=== PATIENT | male | born 1960 | race African-American/Black ===

== ENCOUNTER 2017-12-24 05:57 | Inpatient (IN) | payer OTHER ==
[2017-12-02 11:34] VITALS: BMI 33.6
--- NOTE | 2017-12-23 22:07 | HP ---
Admitting History and Physical - Admission Chief Complaint: Right hip pain x years History of Present Illness: 57 year old male presents regarding his right hip. Longstanding history of right hip osteoarthritis. Patient complains of pain, limited ROM, difficulty ambulating and difficulty with ADLs. Patient has failed conservative treatment measures including PO medication, activity modification, injections and exercise program. At this point, patient wishes to proceed with surgical intervention - right total hip arthroplasty, MAKOplasty. History Source: Patient - Past Medical History Cardiovascular: Yes: HTN, Hyperlipdemia Pulmonary: Yes: COPD - Past Surgical History Additional Past Surgical History: See written history & physical - Smoking History Smoking history: Current some day smoker Have you smoked in the past 12 months: Yes Aproximately how many cigarettes per day: 1 - Alcohol/Substance Use Hx Alcohol Use: No Home Medications - Allergies Allergies/Adverse Reactions: Allergies Allergy/AdvReac Type Severity Reaction Status Date / Time No Known Allergies Allergy Verified 12/24/17 06:40 - Home Medications Home Medications: Ambulatory Orders Amlodipine Besylate 10 mg PO DAILY 12/02/17 Diclofenac Sodium 75 mg PO TID PRN 12/02/17 Multivit-Mins/Iron/Folic/Lycop [Centrum Men's Tablet] 1 each PO DAILY 12/02/17 Simvastatin 40 mg PO DAILY 12/02/17 Tiotropium [place] [Spiriva] 1 inh IH DAILY 12/02/17 Review of Systems - Review of Systems Musculoskeletal: reports: Decreased ROM (right hip), Joint Pain (right hip) Physical Examination Constitutional: Yes: Well Nourished, No Distress Eyes: Yes: Conjunctiva Clear HENT: Yes: Atraumatic, Normocephalic Neck: Yes: Supple Cardiovascular: Yes: Regular Rate and Rhythm Respiratory: Yes: Regular Gastrointestinal: Yes: Soft ...Rectal Exam: Yes: Deferred Musculoskeletal: Yes: Joint Stiffness (right hip) Assessment/Plan 57 year old male presents regarding his right hip. Longstanding history of right hip osteoarthritis. Patient complains of pain, limited ROM, difficulty ambulating and difficulty with ADLs. Patient has failed conservative treatment measures including PO medication, activity modification, injections and exercise program. At this point, patient wishes to proceed with surgical intervention. Pros, cons, risk, benefits and alternatives of a right total hip arthroplasty - MAKOplasty were discussed with the patient at length. Patient confirms his understanding and consents to proceed with a right total hip arthroplasty - MAKOplasty.
[2017-12-24] MEDS ORDERED: GABAPENTIN 300 MG CAPSULE (FP) PO ONE (06:32)
[2017-12-24] MEDS ORDERED: TRANEXAMIC ACID 1000 MG/10 ML VIAL IVPUSH ONE ×2 (06:32→10:36)
[2017-12-24] MEDS ORDERED: oxyCODONE HCL 10 MG SUSTAINED ACTING TABLET PO ONE (06:32)
[2017-12-24] MEDS ORDERED: CEFAZOLIN 2 GM/D5W 2 GM/50 ML ML IVPB ONE (06:32)
[2017-12-24] MEDS ORDERED: ROPIVICAINE 0.2%/MORPH PF/KETOROLAC - 51ML DISP.SYRINGE IA ONE ×3 (06:32→10:38)
[2017-12-24] MEDS ORDERED: oxyCODONE HCL 10 MG SUSTAINED ACTING TABLET ONE (06:51)
[2017-12-24] MEDS ORDERED: PANTOPRAZOLE 40 MG TABLET (FP) ONE (06:51)
[2017-12-24] MEDS ORDERED: GABAPENTIN 300 MG CAPSULE (FP) ONE (06:51)
[2017-12-24] MEDS ORDERED: CELECOXIB 200 MG CAPSULE ONE (06:52)
[2017-12-24] MEDS: CELECOXIB 200 MG CAPSULE PO ONE ×2 (07:00→13:23)
[2017-12-24] MEDS: PANTOPRAZOLE 40 MG TABLET (FP) PO ONE ×2 (07:00→13:24)
[2017-12-24] MEDS ORDERED: TRANEXAMIC ACID 1000 MG/10 ML VIAL ONE ×2 (07:25→07:30)
[2017-12-24] MEDS ORDERED: ceFAZolin SODIUM 1 GM VIAL ONE ×2 (07:25→07:30)
[2017-12-24] MEDS ORDERED: VANCOMYCIN 1,000 MG VIAL (RESTRICTED TO ID ONLY) ONE (07:26)
[2017-12-24] MEDS ORDERED: EPINEPHrine/PF 1 MG/1 ML (1:1,000) AMPULE ONE (07:30)
[2017-12-24] MEDS ORDERED: DEXAMETHASONE SOD PHOSPHATE 4 MG/1 ML VIAL ONE (07:30)
[2017-12-24] MEDS ORDERED: KETOROLAC TROMETHAMINE 30 MG/1 ML VIAL ONE ×2 (07:30→11:02)
[2017-12-24] MEDS ORDERED: DEXAMETHASONE SOD PHOSPHATE/PF 10 MG/ML SDV ONE (07:30)
[2017-12-24] MEDS ORDERED: PROPOFOL 20 ML ONE ×6 (07:30→11:15)
[2017-12-24] MEDS ORDERED: MIDAZOLAM HCL 2 MG/2 ML SINGLE DOSE VIAL ONE ×2 (07:30→08:08)
[2017-12-24] MEDS ORDERED: ONDANSETRON 4 MG/2 ML VIAL ONE (07:30)
[2017-12-24] MEDS ORDERED: ROPIVACAINE HCL 0.5% 30ML VIAL ONE (07:31)
[2017-12-24] MEDS ORDERED: SUCCINYLCHOLINE CHLORIDE 200 MG/10 ML VIAL ONE (07:35)
[2017-12-24] MEDS ORDERED: BUPIVACAINE HCL/PF 0.5% (5MG/ML) 10 ML VIAL ONE (07:45)
[2017-12-24] MEDS ORDERED: ePHEDrine SULFATE 50 MG/1 ML AMPULE ONE (09:33)
[2017-12-24] MEDS ORDERED: ceFAZolin SODIUM 1 GM VIAL IVPB ONE (10:32)
[2017-12-24] MEDS ORDERED: VANCOMYCIN 1,000 MG VIAL (RESTRICTED TO ID ONLY) IVPB ONE (10:37)
[2017-12-24] MEDS ORDERED: ACETAMINOPHEN INJECTION 100 ML IVPB ONE (11:03)
[2017-12-24] MEDS ORDERED: traMADol HCL 50 MG TABLET ONE (11:03)
[2017-12-24] MEDS ORDERED: MAG HYDROX/AL HYDROX/SIMETH 30 ML UNIT-DOSE CUP PO PRN (11:06)
[2017-12-24] MEDS ORDERED: MAGNESIUM HYDROX 2400MG/30ML ORAL SUSPENSION 30 ML CUP PO PRN (11:06)
[2017-12-24] MEDS ORDERED: ONDANSETRON 4 MG/2 ML VIAL IVPUSH PRN (11:06)
[2017-12-24] MEDS ORDERED: LACTATED RINGERS SOLUTION 1,000 ML IV SCH (11:15)
[2017-12-24] MEDS: ACETAMINOPHEN 1000 MG/100 ML VIAL (NON FORMULARY) IVPB ONE ×2 (12:15→13:25)
[2017-12-24] MEDS: traMADol HCL 50 MG TABLET PO SCH ×3 (12:54→18:21)
[2017-12-24] MEDS: KETOROLAC TROMETHAMINE 30 MG/1 ML VIAL IVPUSH SCH ×2 (14:20→18:21)
--- NOTE | 2017-12-24 16:22 | OP ---
Operative Note - Note: Operative Date: 12/24/17 Pre-Operative Diagnosis: right hip OA Operation: right monty LIT Post-Operative Diagnosis: Same as Pre-op Surgeon: Trung Davies Senior Erp Consultant: Marbella Vines Anesthesia: Spinal Estimated Blood Loss (mls): 200
--- NOTE | 2017-12-24 16:47 | SURG ---
Surgery Outboard Motor Mechanic Note Outboard Motor Mechanic: Marbella Vines PA-C Date of Service: 12/24/17 Diagnosis: right hip OA Procedure: right monty LIT I was present for the entirety of the operative procedure. For further detail, please refer to operative report. Visit type - Case Type Case Type: Scheduled - Emergency Emergency Visit: No - New patient This patient is new to me today: Yes Date on this admission: 12/24/17
[2017-12-24] MEDS: CEFAZOLIN 2 GM/D5W 2 GM/50 ML ML IVPB SCH (18:20)
[2017-12-24] MEDS ORDERED: DEXAMETHASONE SOD PHOSPHATE 10 MG/1 ML VIAL IVPB ONE (20:00)
[2017-12-24] MEDS: ASCORBIC ACID 500 MG TABLET (FP) PO SCH (21:23)
[2017-12-24] MEDS: GABAPENTIN 300 MG CAPSULE (FP) PO SCH (21:23)
[2017-12-24] MEDS: CELECOXIB 200 MG CAPSULE PO SCH (21:23)
[2017-12-24] MEDS: SENNOSIDES/DOCUSATE COMBO (SENNA PLUS) TABLET (UD) PO SCH (22:04)
[2017-12-25] MEDS: traMADol HCL 50 MG TABLET PO SCH ×4 (01:00→13:00)
[2017-12-25] MEDS: KETOROLAC TROMETHAMINE 30 MG/1 ML VIAL IVPUSH SCH ×3 (01:00→07:30)
[2017-12-25] MEDS: CEFAZOLIN 2 GM/D5W 2 GM/50 ML ML IVPB SCH (02:00)
[2017-12-25] MEDS ORDERED: ASPIRIN 325 MG TABLET PO SCH (08:00)
[2017-12-25 08:09] LABS: HEMATOCRIT 39.8 % (35.4-49); HEMOGLOBIN 13.3 GM/dl (11.7-16.9); MCH 29.1 pg (25.7-33.7); MCHC 33.5 g/dl (32.0-35.9); MEAN CELL VOLUME 86.9 fl (80-96); MEAN PLT VOLUME 7.7 fl (7.5-11.1); PLATELET COUNT 229 K/MM3 (134-434); RBC 4.58 M/mm3 (4.00-5.60); RDW 12.5 % (11.9-15.9); WHITE BLOOD COUNT 11.5 K/mm3 (4.0-10.8)
[2017-12-25 08:28] LABS: ANION GAP 7 (8-16); BLOOD UREA NITROGEN 19 mg/dl (7-18); CALCIUM 8.8 mg/dl (8.4-10.2); CHLORIDE 102 mmol/L (98-107); CO2 24 mmol/L (22-28); CREATININE 1.1 mg/dl (0.6-1.3); GLUCOSE,RANDOM 136 mg/dl (74-106); POTASSIUM 4.4 mmol/L (3.5-5.1); SODIUM 133 mmol/L (136-145)
[2017-12-25] MEDS: ASCORBIC ACID 500 MG TABLET (FP) PO SCH (09:57)
[2017-12-25] MEDS: CELECOXIB 200 MG CAPSULE PO SCH (09:58)
[2017-12-25] MEDS: GABAPENTIN 300 MG CAPSULE (FP) PO SCH (09:59)
[2017-12-25] MEDS: SENNOSIDES/DOCUSATE COMBO (SENNA PLUS) TABLET (UD) PO SCH (09:59)
[2017-12-25] MEDS ORDERED: PATIENT'S OWN MEDICATION (NON-FORMULARY) (Simvastatin [Simvastatin] 40 MG) PO SCH (10:00)
[2017-12-25] MEDS ORDERED: TIOTROPIUM BROMIDE 18 MCG CAPSULES IH SCH (10:00)
[2017-12-25] MEDS ORDERED: ATORVASTATIN CA 20 MG TABLET (FP) PO SCH (10:00)
[2017-12-25] MEDS ORDERED: amLODIPine BESYLATE 10 MG TABLET (FP) PO SCH (10:00)
[2017-12-25] MEDS ORDERED: MULTIVITAMINS (DAILY MVI) TABLET (FP) PO SCH (10:00)
[2017-12-25] MEDS ORDERED: PANTOPRAZOLE 40 MG TABLET (FP) PO SCH (10:00)
[2017-12-25 10:22] VITALS: BP 142/81; PULSE 68; TEMP 97.6
--- NOTE | 2017-12-25 10:56 | PN ---
Progress Note (short form) - Note Progress Note: Anesthesia postop note< POD#1, S/P Right total hip replacement, under spinal and nerve blocks. Pat seen and examined. No complaints, pain score 10. VSS. Ambulating, PT today. Tolerating po. No apparent post anesthesia complications.
--- NOTE | 2017-12-25 13:39 | DS ---
Physical Examination Vital Signs: Vital Signs Temperature 97.6 F 12/25/17 10:00 Pulse Rate 68 12/25/17 10:00 Respiratory Rate 19 12/25/17 10:00 Blood Pressure 142/81 12/25/17 10:00 O2 Sat by Pulse Oximetry (%) 98 12/25/17 10:00 Labs: CBC, BMP 12/25/17 07:45 12/25/17 07:45 Discharge Summary Reason For Visit: RIGHT HIP OSTEOARTHRITIS Current Active Problems Osteoarthritis of right hip (Acute) Procedures: Principal: Right ARIEL LIT Hospital Course: Admitted for elective surgery. Procedure performed without complications. Pt received postoperative antibiotic prophylaxis and DVT ppx. Ambulated with physical therapy. Stable for discharge home with outpatient followup. Condition: Stable - Instructions Diet, Activity, Other Instructions: Dr Davies - Hip Replacement Instructions Keep the Aquacel dressing on until removed by Dr. Davies in 10-14 days - it is antibacterial and waterproof and you can shower with it on. Call the office for a follow-up appointment with Dr. Davies in 10-14 days. [phone] Take one Aspirin 325mg daily for 6 weeks to prevent blood clots in your legs. Take one Pantoprazole 40mg daily for 6 weeks to protect against heartburn and ulcers. Take Cephalexin (antibiotic) 3x/day for 10 days to help prevent skin infection. Take Celebrex 200mg twice daily for 30 days to reduce swelling and inflammation. Take a multivitamin, stool softener and extra Vitamin C supplement daily. For pain: *Mild pain (1-3/10): Take 1 Tramadol tablet every 4 hours as needed. Moderate pain (4-6/10): Take 1 Tramadol tablet and 1 Percocet tablet every 4 hours as needed. Severe pain (7-10/10): Take 1 Tramadol tablet and 2 Percocet tablets every 4 hours as needed. Activity: You can put as much weight on the operative leg as you want. For the first 6 weeks, all you need to do is walk around the house, go up/down stairs, and sit down/get up. After 6 weeks when everything is healed (and bone has grown into the implant) you will be sent for more intensive outpatient physical therapy. Always use a walker or cane for balance and to prevent falls. Expect to see swelling / bruising from the operative site all the way down to your toes. Wear the Compression stocking on the operative side during the day to minimize how much swelling there is in your foot/ankle. Don't wear the stocking at night. You don't have to wear the stocking on the other side. Disposition: VNS/HOME HEALTH CARE - Home Medications Comprehensive Discharge Medication List: Ambulatory Orders Amlodipine Besylate 10 mg PO DAILY 12/02/17 Multivit-Mins/Iron/Folic/Lycop [Centrum Men's Tablet] 1 each PO DAILY 12/02/17 Simvastatin 40 mg PO DAILY 12/02/17 Tiotropium [place] [Spiriva] 1 inh IH DAILY 12/02/17 Ascorbic Acid [Vitamin C -] 500 mg PO BID tablet 12/25/17 Aspirin [ASA -] 325 mg PO DAILY@0800 tablet 12/25/17 Celecoxib [CeleBREX -] 200 mg PO BID #60 capsule 12/25/17 Cephalexin Monohydrate [Keflex -] 500 mg PO TID #30 capsule 12/25/17 Oxycodone HCl/Acetaminophen [Percocet 5-325 mg Tablet] 1 - 2 tab PO Q4H PRN #60 tablet MDD 10 12/25/17 Pantoprazole Sodium [Protonix -] 40 mg PO DAILY #40 tablet.ec 12/25/17 Sennosides/Docusate Sodium [Pericolace -] 2 tablet PO BID tablet 12/25/17 traMADol HCL [Ultram -] 50 mg PO Q4H PRN #42 tablet MDD 6 12/25/17
--- NOTE | 2017-12-28 18:39 | SPEC ---
DATE OF OPERATION: 12/24/2017 PREOPERATIVE DIAGNOSIS: Right hip osteoarthritis. POSTOPERATIVE DIAGNOSIS: Right hip osteoarthritis. PROCEDURE: Right total hip replacement with MAKOplasty robotic navigation. ATTENDING: Severo Styles MD METAL WEIGHER: CARMEN Ivan ANESTHESIA: Spinal plus sedation. ESTIMATED BLOOD LOSS: 200 mL COMPLICATIONS: None. DISPOSITION: The patient was transferred to the PACU in stable condition. IMPLANTS USED: Atif Accolade II size 9 femoral component, [place] Tritanium 64-mm acetabular component with 30-mm, 20-mm, and 15-mm acetabular screws, MDM bipolar head ball and liner with inner ceramic head. INDICATIONS: This is a 57-year-old male who presented to the office complaining of severe right hip pain. He was seen and examined by Dr. Styles and diagnosed with severe right hip osteoarthritis. The patient was initially treated nonoperatively with injections, medications, and physical therapy but continued to have severe pain and ambulatory dysfunction. He was, therefore, indicated for a right total hip replacement with MAKOplasty robotic navigation. The risks, benefits, and alternatives to the surgery were explained to the patient in great detail, and he elected to proceed with the surgery. On the day of surgery, the patient was taken to the operating room and placed on the OR table. Spinal anesthesia was administered by the anesthesiologist. The patient was then positioned in the lateral decubitus position on the table and all bony prominences were padded. An axillary roll was placed. The operative hip was then prepped and draped in the usual sterile fashion and intravenous antibiotics were given for infection prophylaxis. A surgical time-out was then performed with the team, and the patients identity, procedure, side, availability of implants, and the administration of antibiotics were confirmed. An approximately 15-cm longitudinal incision was made through the skin centered on the greater trochanter of the hip. This dissection was carried down through the subcutaneous tissues to the deep fascia. This fascia was then incised and a Cobra was placed around the inferior femoral neck. Electrocautery was used to reflect the anterior 40% of the gluteus medius and minimus starting at the musculotendinous junction and leaving a cuff for closure. This was reflected to reveal the capsule of the hip joint. An anterior capsulectomy was performed and the femoral head and neck were visualized. Grade 4 changes were noted diffusely throughout the joint. At this point, three small stab incisions were made superior to the main incision along the iliac crest. Three self-drilling Steinmann pins were then placed and the Clearhaus pelvic array was attached. Reference points on the limb were then entered into the robotic device and the limb length deficiency, offset, and femoral neck resection level were then calculated by the software. The hip was then dislocated with traction and external rotation. An oscillating saw was used to make the femoral neck cut at the level previously templated, and the femoral head was removed. Attention was then turned to the acetabulum. Retractors were then placed around the acetabulum and the labrum was removed. An acetabular checkpoint pin and the Clearhaus software were used to register the contours of the acetabulum. The acetabulum was then reamed in a single stage to the preoperatively templated size using the Clearhaus robotic arm. The appropriately sized cup was then impacted and had solid fixation as well as the preset inclination and version of 40 and 20 degrees, respectively. A polyethylene liner was then placed in the cup. Attention was then turned back to the femur, which was externally rotated for improved visualization. A femoral neck elevator was used to present the femoral neck cut, a box osteotome was used to enter the femoral canal, and a canal finder was used to go down the femoral shaft. The Nino broaches were used sequentially until the optimal scratch fit was achieved. This correlated with the preoperatively templated size. From here, several different offset head and neck configurations were tested until excellent stability and length were obtained. These measurements were quantified using the Clearhaus software. All trial components were then removed, the femur was copiously irrigated, and the final components were placed. Leg length and stability were checked again and found to be excellent. Irrigation was performed again. Wound closure was started by repairing the abductor muscles with a no. 2 FiberWire stitch in a Krackow configuration passed through bone tunnels in the greater trochanter and tied over a bony bridge. This repair was then reinforced with a 0 V-Loc 180 barbed suture. Next, no. 1 Polysorb and 0 V-Loc 180 were used to close the fascia. The deep subcutaneous tissue was closed with no. 1 Polysorb sutures, and 2-0 Polysorb was used for the superficial subcutaneous tissue. The skin was closed using both 3-0 V-Loc 90 suture in a running subcuticular fashion and SwiftSet skin adhesive. The Nino array and pins were removed from the iliac crest and the stab incision sites were irrigated and closed with 4-0 Polysorb sutures and SwiftSet skin adhesive. Once this was completed, a sterile dressing was applied. The patient was then awakened and taken to the PACU in stable condition. ADDENDUM: After final implants were placed, a 3-minute dilute Betadine lavage was performed. Following this, the wound was thoroughly irrigated with normal saline and wound closure was begun. SEVERO STYLES M.D. [id number]
--- NOTE | 2017-12-31 16:07 | PATH ---
Surgical Pathology Report Patient Name: MELISA HUNTLEY Med. Rec. #: [id number] /Age/Gender: 1960 (Age: 57) / M Account: [id number] Location: [facility] MED-SURG Taken: 12/24/2017 Received: 12/24/2017 Reported: 12/31/2017 Physicians: Trung Davies M.D. Specimen(s) Received RIGHT FEMORAL HEAD Clinical History Right hip osteoarthritis Final Diagnosis FEMORAL HEAD, RIGHT, TOTAL HIP REPLACEMENT: DEGENERATIVE JOINT DISEASE. Electronically Signed Elvira Salinas M.D. Gross Description Received in formalin, labeled "right femoral head," is a 5.5 x 5.5 x 5.0 cm. femoral head with a 1.2 cm in length portion of femoral neck attached. The margin of resection is smooth. There is a 4.5 cm greatest dimension area of eburnation identified. The remaining articular surface is joshi-yellow and diffusely nodular and granular. The underlying trabecular bone is yellow and hard. A pharmacy sales representative section is submitted in one cassette, following decalcification. /12/25/2017 [facility]12/25/2017
== END 2017-12-25 14:21 | disposition home health service (06) | DRG 470 ==
LOC: FM/S 05:57
PROVIDERS: ADMIT Student in an Organized Health Care Education/Training Program; ATTEND Student in an Organized Health Care Education/Training Program
PROC: 8E0Y0CZ Robotic Assisted Procedure of Lower Extremity, Open Approach (ICD-10-PCS; 2017-12-24)
PROC: 0SR90JZ Replacement of Right Hip Joint with Synthetic Substitute, Open Approach (ICD-10-PCS; principal; 2017-12-24 08:00)
DX: M16.11 Unilateral primary osteoarthritis, right hip (principal); I10 Essential (primary) hypertension; E78.5 Hyperlipidemia, unspecified; J44.9 Chronic obstructive pulmonary disease, unspecified; F17.210 Nicotine dependence, cigarettes, uncomplicated
CPT/HCPCS: 36415; 73523-TC-FY; 80048; 82962; 85027; 88304-TC; 88311-TC; 94760; 97116-GP; 97161-GP; J0131; J1100